=== PATIENT | male | born 1975 | race Caucasian/White ===

== ENCOUNTER 2022-03-18 09:38 | Observation (INO) | payer OTHER ==
[2022-03-18] MEDS ORDERED: Fentanyl 100 MCG/2 ML VIAL SLOW IVP PRN (11:15)
[2022-03-18] MEDS ORDERED: Ondansetron ODT 4 MG TAB SL PRN (11:15)
[2022-03-18] MEDS ORDERED: Ondansetron PF 4 MG/2 ML Vial IVP PRN (11:15)
[2022-03-18] MEDS ORDERED: Sodium Chloride 0.9% 1,000 ML IV SCH ×2 (11:15→11:30)
[2022-03-18] MEDS ORDERED: traMADol HCl 50 MG TAB PO PRN ×2 (11:18→20:43)
[2022-03-18] MEDS ORDERED: hydrALAZINE 20 MG/ML VIAL SLOW IVP PRN (11:18)
[2022-03-18] MEDS ORDERED: Morphine 2 MG/ML VIAL SLOW IVP PRN (11:18)
[2022-03-18] MEDS ORDERED: Promethazine HCl 25 MG/ML VIAL IM PRN (11:18)
[2022-03-18] MEDS ORDERED: Cyclobenzaprine 10 MG TAB PO PRN (11:18)
[2022-03-18] MEDS ORDERED: Ketorolac Tromethamine 30 MG/ML VIAL IVP SCH (11:30)
[2022-03-18] MEDS ORDERED: traMADol HCl 50 MG TAB PO SCH ×3 (12:00→14:00)
[2022-03-18] MEDS: Sodium Chloride 0.9% 1,000 ML IV SCH ×2 (13:12→19:52)
[2022-03-18 13:20] VITALS: BMI 28.1
[2022-03-18] MEDS: Gabapentin 300 MG CAP PO SCH ×2 (15:19→21:02)
[2022-03-18] MEDS ORDERED: Acetaminophen 500 MG TAB PO SCH (16:00)
[2022-03-18] MEDS: Acetaminophen/Codeine 30-300mg Tablet PO SCH ×2 (17:42→21:05)
[2022-03-18] MEDS: Senokot S 8.6-50 MG TAB PO SCH (21:01)
[2022-03-18] MEDS ORDERED: Famotidine 20 MG TAB PO SCH (22:30)
[2022-03-18] MEDS ORDERED: Lidocaine 5% Patch TD SCH (22:30)
[2022-03-19] MEDS: Acetaminophen/Codeine 30-300mg Tablet PO SCH ×2 (04:11→11:26)
[2022-03-19 05:22] LABS: #Basophils 0.1 thou/uL (0.0-0.2); #Eosinphils 0.2 thou/uL (0.0-0.7); #Lymphocytes 1.9 thou/uL (1.20-3.40); #Monocytes 0.8 thou/uL (0.11-0.59); #Neutrophils 5.4 thou/uL (1.40-6.50); %Basophils 0.9 % (0.0-1.0); %Lymphocytes 22.5 % (21.0-51.0); %Monocytes 9.7 % (0.0-10.0); %Neutrophils 64.9 % (42.0-75.0); Hemoglobin 13.6 g/dL (14.0-18.0); Mean Corpuscular HGB CONC 33.8 g/dL (32.0-36.0); Mean Corpuscular Hemoglobin 32.7 pg (27.0-31.0); Mean Corpuscular Volume 96.9 fL (78.0-98.0); Mean Platelet Volume 8.3 fL (7.4-10.4); Platelet Count 152 thou/uL (130-400); RBC Distribution Width 10.7 % (11.5-14.5); Red Blood Cell (RBC) Count 4.16 mill/uL (4.70-6.10); White Blood Cell (WBC) Count 8.4 thou/uL (4.8-10.8)
[2022-03-19 05:28] LABS: Prothrombin Time 13.4 sec (12.0-14.7)
[2022-03-19 05:29] LABS: PTT 31.3 sec (22.9-36.1)
[2022-03-19 05:36] LABS: Phosphorus 2.9 mg/dL (2.3-4.7)
[2022-03-19 05:37] LABS: Anion Gap 12 mmol/L (10-20); BUN (Urea Nitrogen) 14 mg/dL (8.9-20.6); Calc. Creatinine Clearance 101 mL/min (70-130); Calcium 8.6 mg/dL (7.8-10.44); Carbon Dioxide 22 mmol/L (22-29); Chloride 109 mmol/L (98-107); Glucose 105 mg/dL (70-105); Magnesium 1.8 mg/dL (1.6-2.6); Potassium 4.5 mmol/L (3.5-5.1); Sodium 138 mmol/L (136-145)
[2022-03-19] MEDS ORDERED: Lactated Ringer's 1,000 ML IV SCH (07:30)
[2022-03-19] MEDS ORDERED: Ketorolac Tromethamine 30 MG/ML VIAL IVP SCH (08:00)
[2022-03-19] MEDS ORDERED: Ibuprofen 200 MG TAB PO SCH (08:00)
[2022-03-19] MEDS: Gabapentin 300 MG CAP PO SCH (08:48)
[2022-03-19] MEDS: Senokot S 8.6-50 MG TAB PO SCH (08:48)
[2022-03-19] MEDS ORDERED: Polyethylene Glycol 3350 17 GM Packet PO SCH (09:00)
[2022-03-19] MEDS ORDERED: Transdermal Patch Removal LIDOCAINE TOP SCH (09:00)
[2022-03-19] MEDS ORDERED: Famotidine 20 MG TAB PO SCH (09:00)
[2022-03-19] MEDS ORDERED: Multivitamin W/ Minerals 1 TAB PO SCH (09:00)
[2022-03-19 12:17] VITALS: BP 127/66; TEMP 98.4
[2022-03-19] MEDS ORDERED: Lidocaine 5% Patch TD SCH (21:00)
== END 2022-03-19 12:59 | disposition home or self-care (01) ==
LOC: SURG A 11:09
PROVIDERS: ADMIT Surgery; ATTEND Surgery
DX: S27.0XXA Traumatic pneumothorax, initial encounter (principal); S22.41XA Multiple fractures of ribs, right side, initial encounter for closed fracture; G89.11 Acute pain due to trauma; E04.2 Nontoxic multinodular goiter; N17.9 Acute kidney failure, unspecified; V28.4XXA Motorcycle driver injured in noncollision transport accident in traffic accident, initial encounter
CPT/HCPCS: 36415; 71045; 80048; 83735; 84100; 84443; 85025; 85610; 85730; 96374; 96375; G0378; J1885; J2270; J7050

== ENCOUNTER 2022-03-30 15:03 | Outpatient (CLI) | payer OTHER | END 2022-03-30 15:04 | disposition home or self-care (01) | LOC: BICRAD 15:03 | PROVIDERS: ATTEND Surgery | DX: J93.9 Pneumothorax, unspecified (principal) | CPT/HCPCS: 71046 ==